=== PATIENT | male | born 1995 | race African-American/Black ===

== ENCOUNTER 2016-08-23 21:16 | Observation (INO) | payer OTHER, SELFPAY ==
[~2016-08-23] VITALS: Ht 165.1 cm; Wt 77.9 kg
[2016-08-23] MEDS ORDERED: GI COCKTAIL 50ML BTL(HYOSCYAMINE/MAALOX/LIDOCAINE VISCOUS)(1:3:1) As Ordered ONE (23:08)
[2016-08-23 23:21] LABS: BASO % 0.4 % (0.0-1.0); EOS # 0.2 K/mm3 (0.0-0.50); EOS % 2.3 % (0.0-3.0); LARGE UNSTAINED CELL # 0.2 K/mm3 (0.0-0.4); LARGE UNSTAINED CELL % 1.4 % (0.0-4.0); LYMPH # 3.3 K/mm3 (1.5-6.5); LYMPH % 28.1 % (24.0-44.0); MEAN CORPUSCULAR HEMOGLOBIN 30.7 pg (27.0-33.0); MEAN CORPUSCULAR VOLUME 87.8 fl (80.0-96.0); MONO # 0.7 K/mm3 (0.0-0.8); MONO % 6.7 % (0.0-5.0); NEUTROPHILS # 6.7 K/mm3 (1.8-7.7); NEUTROPHILS % 61.1 % (36.0-66.0); PLATELET COUNT, AUTOMATED 189 k/mm3 (150-450); RED CELL DISTRIBUTION WIDTH 12.1 % (11.5-14.5)
[2016-08-23 23:35] LABS: ALBUMIN 4.3 GM/DL (3.2-5.2); ALBUMIN/GLOBULIN RATIO 1.26 (1.00-1.93); ALKALINE PHOSPHATASE 112 U/L (45-117); ALT/SGPT 75 U/L (12-78); ANION GAP 8 MEQ/L (8-16); AST/SGOT 48 U/L (15-37); BILIRUBIN,DIRECT 0.2 MG/DL (0.0-0.2); BILIRUBIN,TOTAL 0.6 MG/DL (0.2-1.0); BLOOD UREA NITROGEN 17 MG/DL (7-18); CARBON DIOXIDE LEVEL 27 MEQ/L (21-32); CHLORIDE LEVEL 107 MEQ/L (98-107); CREATININE FOR GFR 1.03 MG/DL (0.70-1.30); GLOMERULAR FILTRATION RATE > 60.0 (>60); GLUCOSE, FASTING 92 MG/DL (70-105); POTASSIUM SERUM 3.7 MEQ/L (3.5-5.1); SODIUM LEVEL 142 MEQ/L (136-145); TOTAL PROTEIN 7.7 GM/DL (6.4-8.2)
[2016-08-24] MEDS ORDERED: ONDANSETRON 4MG/2ML VIAL (J2405) IV PRN (00:45)
[2016-08-24] MEDS ORDERED: ACETAMINOPHEN TAB 650MG DOSE (2X325MG) PO PRN (00:45)
--- NOTE | 2016-08-24 00:55 | REP ---
clinical: Chest pain . Comparison: None . Technique: PA and lateral. Findings: The mediastinum and cardiac silhouette are normal. The lung sampson are clear and without acute consolidation, effusion, or pneumothorax. The skeletal structures are intact and normal. Impression: 1. No acute cardiopulmonary process. Signed by Alonzo Kline MD 08/24/2016 12:47 A
--- NOTE | 2016-08-24 01:32 | HPEPDOC ---
General Date of Admission 08/24/16 Chief Complaint The patient is a 21-year-old male admitted with a reason for visit of Chest Pain. Source: Patient Exam Limitations: No limitations History of Present Illness 21-year-old male who is part of the at [place] presents to the ER with a chief complaint of muscle aches and pains in his right shoulder and chest. The patient states that [place], and since then he has had increasing pain in his right shoulder and chest. He does note that he has had these pains before over the past 1 year, however at this time he states that they have become more bothersome. He describes the pain as a dull ache and soreness. He denies any trauma to the area or any recent falls. The patient denies use of any prescription medication and or illicit drug use. In addition, the patient denies any symptoms of fevers , chills, shortness of breath, palpitations, abdominal pain, or any nausea/ vomiting/diarrhea. In the ER, the patient was found to have elevated total creatine kinase level of over 3000. An EKG revealed no acute ST changes. The patient will be admitted to the hospitalist service under Dr. Topete for further evaluation and management of his rhabdomyolysis. Home Medications No Active Prescriptions or Reported Meds Allergies Coded Allergies: No Known Allergies (Unverified , 08/24/16) Past Medical History Medical History None Surgical History Surgical opening of left nare. Family History Significant Family History: No pertinent family hx Social History * Smoker: non-smoker Alcohol: denies Drugs: denies Recent Travel/Sick Contacts: Denies: Recent sick contacts, Recent travel Review of Symptoms Other systems 10 point review of systems negative unless otherwise specified in HPI. Physical Examination General Exam: Positive: Alert, Cooperative, No Acute Distress ENT Exam: Positive: Atraumatic, Mucous membr. moist/pink Neck Exam: Negative: JVD Chest Exam: Positive: Clear to auscultation, Normal air movement, Other (chest pain reproducible on palpation) Heart Exam: Positive: Normal S1, Normal S2, Rate Normal Telemetry: Positive: No significant arrhythmia, Sinus Abdomen Exam: Positive: Soft, Negative: Tenderness Extremity Exam: Negative: Swelling, Tenderness Neuro Exam: Positive: Strength at 5/5 X4 ext Vital Signs As noted in EMR. Laboratory Data Labs 24H Laboratory Tests 2 08/23/16 22:26: Aspartate Amino Transf (AST/SGOT) 48H, Alanine Aminotransferase (ALT/SGPT) 75, Alkaline Phosphatase 112, Total Bilirubin 0.6, Direct Bilirubin 0.2, Albumin 4.3 , Albumin/Globulin Ratio 1.26, Anion Gap 8, White Blood Count 11.0H, Red Blood Count 5.07, Hemoglobin 15.6, Hematocrit 44.5, Mean Corpuscular Volume 87.8, Mean Corpuscular Hemoglobin 30.7, Mean Corpuscular Hemoglobin Concent 35.0, Red Cell Distribution Width 12.1, Platelet Count 189, Neutrophils (%) (Auto) 61.1, Lymphocytes (%) (Auto) 28.1, Monocytes (%) (Auto) 6.7H, Eosinophils (%) (Auto) 2.3, Basophils (%) (Auto) 0.4, Neutrophils # (Auto) 6.7, Lymphocytes # (Auto) 3.3, Monocytes # (Auto) 0.7, Eosinophils # (Auto) 0.2, Basophils # (Auto) 0.0, Calcium Level 9.0, Creatine Kinase MB 2.5, Creatine Kinase MB Relative Index 0.07, D-Dimer, Quantitative < 270.0, Glomerular Filtration Rate > 60.0, Large Unclassified Cells # 0.2, Large Unclassified Cells % 1.4, Total Creatine Kinase 3329H, Total Protein 7.7, Troponin I < 0.02 CBC/BMP Laboratory Tests 08/23/16 22:26 Red Blood Count 5.07, Mean Corpuscular Volume 87.8, Mean Corpuscular Hemoglobin 30.7, Mean Corpuscular Hemoglobin Concent 35.0, Red Cell Distribution Width 12.1 , Neutrophils (%) (Auto) 61.1, Lymphocytes (%) (Auto) 28.1, Monocytes (%) (Auto ) 6.7 H, Eosinophils (%) (Auto) 2.3, Basophils (%) (Auto) 0.4, Neutrophils # ( Auto) 6.7, Lymphocytes # (Auto) 3.3, Monocytes # (Auto) 0.7, Eosinophils # (Auto ) 0.2, Basophils # (Auto) 0.0 Plan / VTE VTE Prophylaxis Ordered?: Yes Plan Plan Rhabdomyolysis secondary to physical exertion Admitted for [facility] Total creatine kinase level noted to be 3329 Will treat with IV fluid hydration Serum creatinine, and electrolytes within normal limits-Will continue to trend Urine toxicology screening, urine myoglobin study ordered We will trend the patient's creatine kinase levels every 8 hours DVT prophylaxis-Lovenox The patient will be admitted under Dr. Topete's service, and he will begin to follow the patient on 08/24/2016 at 7 AM. RAVI JONES MD Aug 24, 2016 01:32
--- NOTE | 2016-08-24 02:39 | EDDOCDS ---
Nurse's Notes [facility] Name: Jaylene Patterson Age: 21 yrs Sex: Male : 1995 Arrival Date: 08/23/2016 Time: 21:16 Bed 9 Private MD: Other - Complete Info On Cds Diagnosis: Rhabdomyolysis Presentation: 08/23 21:33 Presenting complaint: Patient states: anterior chest wall pain, difficulty breathing on rs3 and off worse with PT or exercise for 6 months. relief with rest. reports of R shoulder pain for 6 months. Aspirin was not taken prior to arrival. Adult Sepsis Screening: The patient does not have new or worsening altered mentation. Patient's respiratory rate is less than 22. Systolic blood pressure is greater than 100. Patient has a qSOFA score of 0- Negative Sepsis Screen. Suicide/Homicide risk assessment- the patient denies having any suicidal and/or homicidal ideations and does not present with any other emotional, behavioral or mental health complaints. 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 Transition of care: patient was not received from another setting of care. 21:33 Acuity: JAYESH Level 3 rs3 21:33 Method Of Arrival: Walkin/Carried/Asstd rs3 Triage Assessment: 21:36 General: Appears in no apparent distress. Pain: Denies pain. HIV screening NA for this rs3 visit Offered previously. Cardiovascular: Chest pain is described as vague, radiates Does not radiate. episodes are intermittent began 6 months. Historical: - Allergies: no known allergies; - Home Meds: 1. none - PMHx: none; - PSHx: nose surgery; - Social history: Smoking status: Patient uses tobacco products, light tobacco smoker. No barriers to communication noted, The patient speaks fluent Hungarian. - Family history: Not pertinent. - : The pt / caregiver states he / she is not on anticoagulants. Home medication list is obtained from the patient. - Exposure Risk Screening:: None identified. Screenin:30 Screening information is obtained from the patient. Fall risk: No risks identified. ko2 Assistance ADL's: requires no assistance with activities of daily living. Abuse/DV Screen: The patient / caregiver reports he/she is: not in a situation that causes fear, pain or injury. Nutritional screening: No deficits noted. Advance Directives: Currently, there is no health care proxy. There is no active DNR order. There is no living will. There is no Power of Visual Presentation Manager. home support is adequate. Assessment: 22:29 General: Appears in no apparent distress, comfortable, Behavior is appropriate for age, ko2 cooperative. Pain: Location: anterior aspect of left upper chest Pain currently is 8 out of 10 on a pain scale. Neurological: Level of Consciousness is awake, alert. Respiratory: Airway is patent. Derm: Skin is normal. 22:48 General: Appears in no apparent distress, comfortable, Behavior is appropriate for age, ko2 cooperative. Pain: Location: anterior aspect of left upper chest Pain currently is 8 out of 10 on a pain scale. Neurological: Level of Consciousness is awake, alert. Cardiovascular: Rhythm is regular. Respiratory: Airway is patent. Derm: Skin is normal. 23:12 General: Pt laying comfortably in bed. Medicated per orders for reported 810 pain. ld5 Call lomeli placed within reach. 23:58 General: Appears in no apparent distress, comfortable, Behavior is appropriate for age, ko2 cooperative. Pain:. Neurological: Level of Consciousness is awake, alert. Cardiovascular: Rhythm is regular. Respiratory: Airway is patent. Derm: Skin is normal. 08/24 01:00 General: Appears in no apparent distress, comfortable. Neurological: Level of ko2 Consciousness is awake, alert. Cardiovascular: Rhythm is regular. Respiratory: No deficits noted. Derm: Skin is normal. Vital Signs: 08/23 21:19 BP 155 / 99; Pulse 68; Resp 18 S; Temp 96.8(O); Pulse Ox 99% on R/A; Weight 77.11 kg gr2 (R); Height 5 ft. 5 in. (165.10 cm) (R); Pain 09/21; 22:42 BP 127 / 86 (auto/); ko2 22:43 Pulse 80 MON; Pulse Ox 98% ; ko2 23:12 BP 118 / 74 (auto/); ko2 23:12 Pulse 86 MON; Pulse Ox 97% ; ko2 23:42 BP 107 / 64 (auto/); ko2 23:42 Pulse 64 MON; Pulse Ox 96% ; ko2 08/24 00:11 Pulse 54 MON; Pulse Ox 95% ; ko2 00:12 BP 125 / 75 (auto/); ko2 00:41 Pulse 60 MON; Pulse Ox 97% ; ko2 00:42 BP 111 / 62 (auto/); ko2 01:11 Pulse 60 MON; Pulse Ox 97% ; ko2 01:12 BP 114 / 58 (auto/); ko2 01:58 BP 115 / 51; Pulse 74; Resp 16; Temp 97; Pulse Ox 96% ; Pain 2/10; ko2 08/23 21:19 Body Mass Index 28.29 (77.11 kg, 165.10 cm) gr2 Vitals: 08/23 21:19 Log In Time: August 23, 2016 at 21:19. gr2 ED Course: 21:18 Patient visited by Savannah Garnado. gr2 21:18 Other - Complete Info On Cds is Private Physician. gr2 21:18 Patient moved to Waiting gr2 21:20 Patient visited by Savannah Granado. gr2 21:20 Patient moved to Pre RCE gr2 21:36 Triage Initiated rs3 22:14 Arlette Mantilla,KENN is Primary Nurse. jul 22:14 Patient moved to Jul 22:15 Osvaldo Mosley DO is PHCP. gk1 22:16 Ramon Meehan DO is Attending Physician. gk1 22:18 Patient visited by Arlette Mantilla RN. ko2 22:29 Patient visited by Arlette Mantilla RN. ko2 22:30 Patient visited by Arlette Mantilla RN. ko2 22:30 Inserted saline lock: 20 gauge in right antecubital area and blood collected. The ko2 patient tolerated the procedure well. 23:05 Patient visited by Ramon Meehan DO. mm11 23:07 EKG done. (by ED staff). Reviewed by Osvaldo Mosley DO. cln 23:08 Patient visited by Leticia Carter PCA. cln 23:12 Patient visited by Alexa Abmrocio,KENN. ld5 23:59 Patient visited by Arlette Mantilla RN. ko2 23:59 The patient / caregiver is instructed regarding the plan of care and ED course. Cardiac ko2 monitor on. Pulse ox on. NIBP on. 08/24 00:25 Patient visited by Arlette Mantilla,KENN. ko2 00:27 Osvaldo Villafuerte is Hospitalizing Provider. gk1 00:51 Patient visited by Osvaldo Mosley DO. gk1 01:12 [facility] Payment Agreement was scanned into [employer] and attached to record. hs2 01:14 Patient name changed from Luanner\S\D\S\Patterson\S\ to Luanner\S\Darren\S\Patterson. EDMS 01:18 Chest, 2 View (pa\E\lat) Returned. EDMS 01:57 No procedures done that require assistance. ko2 Administered Medications: 08/23 23:12 Drug: GI Cocktail - (Alum-Mag Hydroxide-Simeth Suspension 225 mg-200 mg-25 mg/5 mL 30 ld5 ml, Lidocaine Liquid 2 % 10 ml, Hyoscyamine Liquid 10 ml) Route: PO; 08/24 00:25 Drug: LR 1000 ml [lactated ringers intravenous solution] Route: IV; Rate: 1 bolus; ko2 Site: right antecubital; Order Results: Lab Order: CBC with Diff; SPEC'M 08/23/16 22:26 Test: WHITE BLOOD COUNT; Value: 11.0; Range: 4.0-10.0; Abnormal: Above high normal; Units: K/mm3; Status: F Test: RED BLOOD COUNT; Value: 5.07; Range: 4.30-6.10; Units: M/mm3; Status: F Test: HEMOGLOBIN; Value: 15.6; Range: 14.0-18.0; Units: g/dl; Status: F Test: HEMATOCRIT; Value: 44.5; Range: 42.0-52.0; Units: %; Status: F Test: MEAN CORPUSCULAR VOLUME; Value: 87.8; Range: 80.0-96.0; Units: fl; Status: F Test: MEAN CORPUSCULAR HEMOGLOBIN; Value: 30.7; Range: 27.0-33.0; Units: pg; Status: F Test: MEAN CORPUSCULAR HGB CONC; Value: 35.0; Range: 32.0-36.5; Units: g/dl; Status: F Test: RED CELL DISTRIBUTION WIDTH; Value: 12.1; Range: 11.5-14.5; Units: %; Status: F Test: PLATELET COUNT, AUTOMATED; Value: 189; Range: 150-450; Units: k/mm3; Status: F Test: NEUTROPHILS %; Value: 61.1; Range: 36.0-66.0; Units: %; Status: F Test: LYMPH %; Value: 28.1; Range: 24.0-44.0; Units: %; Status: F Test: MONO %; Value: 6.7; Range: 0.0-5.0; Abnormal: Above high normal; Units: %; Status: F Test: EOS %; Value: 2.3; Range: 0.0-3.0; Units: %; Status: F Test: BASO %; Value: 0.4; Range: 0.0-1.0; Units: %; Status: F Test: LARGE UNSTAINED CELL %; Value: 1.4; Range: 0.0-4.0; Units: %; Status: F Test: NEUTROPHILS #; Value: 6.7; Range: 1.8-7.7; Units: K/mm3; Status: F Test: LYMPH #; Value: 3.3; Range: 1.5-6.5; Units: K/mm3; Status: F Test: MONO #; Value: 0.7; Range: 0.0-0.8; Units: K/mm3; Status: F Test: EOS #; Value: 0.2; Range: 0.0-0.50; Units: K/mm3; Status: F Test: BASO #; Value: 0.0; Range: 0.0-0.2; Units: K/mm3; Status: F Test: LARGE UNSTAINED CELL #; Value: 0.2; Range: 0.0-0.4; Units: K/mm3; Status: F Lab Order: [facility]; SPEC'M 08/23/16 22:26 Test: GLUCOSE, FASTING; Value: 92; Range: 70-105; Units: MG/DL; Status: F Test: BLOOD UREA NITROGEN; Value: 17; Range: 7-18; Units: MG/DL; Status: F Test: CREATININE FOR GFR; Value: 1.03; Range: 0.70-1.30; Units: MG/DL; Status: F Test: GLOMERULAR FILTRATION RATE; Value: > 60.0; Range: >60; Status: F Test: SODIUM LEVEL; Value: 142; Range: 136-145; Units: MEQ/L; Status: F Test: POTASSIUM SERUM; Value: 3.7; Range: 3.5-5.1; Units: MEQ/L; Status: F Test: CHLORIDE LEVEL; Value: 107; Range: 98-107; Units: MEQ/L; Status: F Test: CARBON DIOXIDE LEVEL; Value: 27; Range: 21-32; Units: MEQ/L; Status: F Test: ANION GAP; Value: 8; Range: 8-16; Units: MEQ/L; Status: F Test: CALCIUM LEVEL; Value: 9.0; Range: 8.5-10.1; Units: MG/DL; Status: F Test Note: ; Units are mL/min/1.73 m2 Chronic Kidney Disease Staging per NKF: Stage I & II GFR >=60 Normal to Mildly Decreased Stage III GFR 30-59 Moderately Decreased Stage IV GFR 15-29 Severely Decreased Stage V GFR <15 Very Little GFR Left ESRD GFR <15 on POSTBED STITCHER Lab Order: Liver Profile; SPEC'M 08/23/16 22:26 Test: AST/SGOT; Value: 48; Range: 15-37; Abnormal: Above high normal; Units: U/L; Status: F Test: ALT/SGPT; Value: 75; Range: 12-78; Units: U/L; Status: F Test: ALKALINE PHOSPHATASE; Value: 112; Range: 45-117; Units: U/L; Status: F Test: BILIRUBIN,TOTAL; Value: 0.6; Range: 0.2-1.0; Units: MG/DL; Status: F Test: BILIRUBIN,DIRECT; Value: 0.2; Range: 0.0-0.2; Units: MG/DL; Status: F Test: TOTAL PROTEIN; Value: 7.7; Range: 6.4-8.2; Units: GM/DL; Status: F Test: ALBUMIN; Value: 4.3; Range: 3.2-5.2; Units: GM/DL; Status: F Test: ALBUMIN/GLOBULIN RATIO; Value: 1.26; Range: 1.00-1.93; Status: F Lab Order: Cardiac Marker Panel; SPEC'M 08/23/16 22:26 Test: CPK CREATINE PHOSPHOKINASE; Value: 3329; Range: 39-308; Abnormal: Above high normal; Units: U/L; Status: F Test: CK-MB VALUE MASS; Value: 2.5; Range: 0.0-3.6; Units: NG/ML; Status: F Test: MB/CK RELATIVE INDEX; Value: 0.07; Range: < OR =4; Status: F Test: TROPONIN I; Value: < 0.02; Range: < 0.10; Units: NG/ML; Status: F Test Note: ; DIAGNOSIS CRITERIA MMB ng/ml Relative Index (RI) NON-AMI < or = 5 N/A SAMUEL ZONE > 5 < or = 4 AMI > 5 > 4 Lab Order: D-Dimer Quant; SPEC'M 08/23/16 22:26 Test: D-DIMER QUANT; Value: < 270.0; Range: <500; Units: ng/ml; Status: F Radiology Order: Chest, 2 View (pa\E\lat) Test: Chest, 2 View (pa\E\lat) REASON FOR EXAMINATION: Chest Pain; clinical: Chest pain .; ; Comparison: None .; ; Technique: PA and lateral.; ; Findings:; The mediastinum and cardiac silhouette are normal. The lung sampson are clear and; without acute consolidation, effusion, or pneumothorax. The skeletal structures; are intact and normal.; ; Impression:; 1. No acute cardiopulmonary process.; ; ; Signed by; Alonzo Kline MD 08/24/2016 12:47 A; Outcome: 00:27 Decision to Hospitalize by Provider. gk1 01:57 Discharge Assessment: Patient awake, alert and oriented x 3. No cognitive and/or ko2 functional deficits noted. Patient verbalized understanding of disposition instructions. patient administered narcotics - no. The following High Risk Discharge criteria are identified: None. Admitted to Floor accompanied by tech, via wheelchair, with chart. Condition: stable. No special radiology studies were completed. Property :Personal belongings accompany Pt. 02:39 Patient left the ED. ko2 Signatures: Dispatcher [employer] EDMS Candy Montemayor RN RN jan Maynard, Matthew, DO DO mm11 Shirley Dorsey RN RN rs3 Alexa Ambrocio RN RN ld5 Savannah Granado gr2 Arlette Mantilla RN RN ko2 Elza Gavin, Reg Reg hs2 Leticia Carter, AIR TESTER AIR TESTER cln Mosley, Osvaldo, DO DO gk1 MTDD
--- NOTE | 2016-08-24 02:39 | EDDOCDS ---
Physician Documentation [facility] Name: Jaylene Patterson Age: 21 yrs Sex: Male : 1995 Arrival Date: 08/23/2016 Time: 21:16 Bed 9 Private MD: Other - Complete Info On Cds Disposition: 08/24 00:46 I have independently interviewed and examined the patient, and I agree with the mm11 investigation, diagnosis and treatment plan as documented by the Resident. Disposition: 08/24/16 00:27 Hospitalization ordered by Osvaldo Villafuerte for Inpatient Admission. Preliminary diagnosis is Rhabdomyolysis. - Bed requested for 4 [place]. - Status is Inpatient Admission. ko2 - Condition is Stable. - Problem is an acute exacerbation. - Symptoms have improved. Historical: - Allergies: no known allergies; - Home Meds: 1. none - PMHx: none; - PSHx: nose surgery; - Social history: Smoking status: Patient uses tobacco products, light tobacco smoker. No barriers to communication noted, The patient speaks fluent Romansh. - Family history: Not pertinent. - : The pt / caregiver states he / she is not on anticoagulants. Home medication list is obtained from the patient. - Exposure Risk Screening:: None identified. Vital Signs: 08/23 21:19 BP 155 / 99; Pulse 68; Resp 18 S; Temp 96.8(O); Pulse Ox 99% on R/A; Weight 77.11 kg / gr2 170 lbs (R); Height 5 ft. 5 in. (165.10 cm) (R); Pain 3/10; 22:42 BP 127 / 86 (auto/); ko2 22:43 Pulse 80 MON; Pulse Ox 98% ; ko2 23:12 BP 118 / 74 (auto/); ko2 23:12 Pulse 86 MON; Pulse Ox 97% ; ko2 23:42 BP 107 / 64 (auto/); ko2 23:42 Pulse 64 MON; Pulse Ox 96% ; ko2 08/24 00:11 Pulse 54 MON; Pulse Ox 95% ; ko2 00:12 BP 125 / 75 (auto/); ko2 00:41 Pulse 60 MON; Pulse Ox 97% ; ko2 00:42 BP 111 / 62 (auto/); ko2 01:11 Pulse 60 MON; Pulse Ox 97% ; ko2 01:12 BP 114 / 58 (auto/); ko2 01:58 BP 115 / 51; Pulse 74; Resp 16; Temp 97; Pulse Ox 96% ; Pain 2/10; ko2 08/23 21:19 Body Mass Index 28.29 (77.11 kg, 165.10 cm) gr2 MDM: 08/23 22:39 ECG WITH READING ER PHYS+CARDIAG ordered. EDMS 23:04 [employer] Technician/Pulse Ox/q 30 min VS ordered. mm11 23:04 GI Cocktail - (Alum-Mag Hydroxide-Simeth 30 ml, Lidocaine 10 ml, Hyoscyamine 10 ml) PO mm11 once; Pre-mixed 50mL unit dose ordered. 23:05 CBC with Diff Ordered. EDMS 23:05 BMP Ordered. EDMS 23:05 Liver Profile Ordered. EDMS 23:05 Cardiac Marker Panel Ordered. EDMS 23:05 D-Dimer Quant Ordered. EDMS 23:07 Chest, 2 View (pa\E\lat) Ordered. EDMS 08/24 00:02 CBC with Diff Reviewed. gk1 00:02 Liver Profile Reviewed. gk1 00:02 Cardiac Marker Panel Reviewed. gk1 00:02 BMP Reviewed. gk1 00:02 D-Dimer Quant Reviewed. gk1 00:09 Financial registration complete. hs2 00:19 BED REQUEST+ADM ordered. EDMS 00:20 LR Solution 1000 ml IV at 1 bolus once ordered. mm11 01:12 [facility] Payment Agreement was scanned into [employer] and attached to record. hs2 01:18 REGULAR DIET ordered. EDMS 01:18 DRUG EVAL TOXICOLOGY ED ONLY Ordered. EDMS 01:18 URINALYSIS Ordered. EDMS 01:18 CARDIAC MARKER PANEL Ordered. EDMS 01:19 CARDIAC MARKER PANEL Ordered. EDMS 01:19 CARDIAC MARKER PANEL Ordered. EDMS 01:19 URINE MYOGLOBIN SCREEN Ordered. EDMS 01:20 Admission / Observation Status ordered. EDMS 01:22 COMPLETE BLOOD COUNT Ordered. EDMS 01:22 BASIC METABOLIC PROFILE Ordered. EDMS 01:22 MAGNESIUM LEVEL Ordered. EDMS 01:22 THYROID STIMULATING HORMONE Ordered. EDMS 01:22 FREE T4 Ordered. EDMS Administered Medications: 08/23 23:12 Drug: GI Cocktail - (Alum-Mag Hydroxide-Simeth Suspension 225 mg-200 mg-25 mg/5 mL 30 ld5 ml, Lidocaine Liquid 2 % 10 ml, Hyoscyamine Liquid 10 ml) Route: PO; 08/24 00:25 Drug: LR 1000 ml [lactated ringers intravenous solution] Route: IV; Rate: 1 bolus; ko2 Site: right antecubital; Signatures: Dispatcher [employer] Ramon Weems, DO DO mm11 Shirley Dorsey RN RN rs3 Arlette Mantilla RN RN ko2 Elza Gavin, Reg Reg hs2 Jonathan Carmichael RN RN sa Kaur, Gurpreet DO DO gk1 Alexa Ambrocio RN ld5 The chart was reviewed and I authenticate all verbal orders and agree with the evaluation and treatment provided.Attachments: 01:12 [facility] Payment Agreement hs2 MTDD
[2016-08-24 02:40] VITALS: BP 120/58
[2016-08-24] MEDS: NS 1,000 ML IV SCH ×4 (03:03→22:41)
[2016-08-24 06:00] VITALS: BP 131/64
[2016-08-24 07:04] LABS: MEAN CORPUSCULAR HEMOGLOBIN 32.3 pg (27.0-33.0); MEAN CORPUSCULAR HGB CONC 36.3 g/dl (32.0-36.5); RED CELL DISTRIBUTION WIDTH 11.7 % (11.5-14.5); WHITE BLOOD COUNT 10.2 K/mm3 (4.0-10.0)
[2016-08-24 07:34] LABS: ANION GAP 8 MEQ/L (8-16); BLOOD UREA NITROGEN 14 MG/DL (7-18); CALCIUM LEVEL 8.7 MG/DL (8.5-10.1); CARBON DIOXIDE LEVEL 27 MEQ/L (21-32); CHLORIDE LEVEL 107 MEQ/L (98-107); CREATININE FOR GFR 1.01 MG/DL (0.70-1.30); FREE T4 1.03 NG/DL (0.76-1.46); GLOMERULAR FILTRATION RATE > 60.0 (>60); GLUCOSE, FASTING 82 MG/DL (70-105); MAGNESIUM LEVEL 2.1 MG/DL (1.8-2.4); SODIUM LEVEL 142 MEQ/L (136-145)
[2016-08-24] MEDS ORDERED: ENOXAPARIN 40 MG/0.4 ML SYRINGE (J1650) SC SCH (09:00)
[2016-08-24 14:00] VITALS: BP 124/67
--- NOTE | 2016-08-24 21:19 | ECGEPIP ---
Stationary ECG Study [facility] - ED Test Date: 2016-08-23 Pat Name: BRADLEY SALDANA Department: Room: [place] [address] Gender: M [employer] Section: devin : 1995 Requested By: JOE Wagoner Order Number: [id number] Reading MD: Eileen Arauz Measurements Intervals [place] Rate: 72 P: 41 [place]: 147 QRS: 66 QRSD: 83 T: 27 QT: 381 QTc: 417 Interpretive Statements SINUS RHYTHM EARLY REPOLARIZATION NO PRIOR FOR COMPARISON Electronically Signed On 08-24-2016 21:19:01 EST by Eileen Arauz
[2016-08-24 22:00] VITALS: BP 142/82
[2016-08-25] MEDS: NS 1,000 ML IV SCH (05:04)
[2016-08-25 06:00] VITALS: BP 142/90
[2016-08-25 06:30] LABS: MEAN CORPUSCULAR HEMOGLOBIN 30.1 pg (27.0-33.0); MEAN CORPUSCULAR HGB CONC 33.9 g/dl (32.0-36.5); MEAN CORPUSCULAR VOLUME 88.8 fl (80.0-96.0); RED CELL DISTRIBUTION WIDTH 11.8 % (11.5-14.5); WHITE BLOOD COUNT 10.4 K/mm3 (4.0-10.0)
[2016-08-25 07:03] LABS: ANION GAP 9 MEQ/L (8-16); BLOOD UREA NITROGEN 11 MG/DL (7-18); CALCIUM LEVEL 8.6 MG/DL (8.5-10.1); CARBON DIOXIDE LEVEL 23 MEQ/L (21-32); CHLORIDE LEVEL 111 MEQ/L (98-107); CREATININE FOR GFR 0.94 MG/DL (0.70-1.30); GLOMERULAR FILTRATION RATE > 60.0 (>60); GLUCOSE, FASTING 91 MG/DL (70-105); SODIUM LEVEL 143 MEQ/L (136-145)
--- NOTE | 2016-08-26 03:40 | EDDOCDS ---
Physician Documentation [facility] Name: Jaylene Patterson Age: 21 yrs Sex: Male : 1995 Arrival Date: 08/23/2016 Time: 21:16 Bed 9 Private MD: Other - Complete Info On Cds Disposition: 08/24 00:46 I have independently interviewed and examined the patient, and I agree with the mm11 investigation, diagnosis and treatment plan as documented by the Resident. Disposition: 08/24/16 00:27 Hospitalization ordered by Osvaldo Villafuerte for Inpatient Admission. Preliminary diagnosis is Rhabdomyolysis. - Bed requested for 4 [place]. - Status is Inpatient Admission. ko2 - Condition is Stable. - Problem is an acute exacerbation. - Symptoms have improved. Historical: - Allergies: no known allergies; - Home Meds: 1. none - PMHx: none; - PSHx: nose surgery; - Social history: Smoking status: Patient uses tobacco products, light tobacco smoker. No barriers to communication noted, The patient speaks fluent Khmer. - Family history: Not pertinent. - : The pt / caregiver states he / she is not on anticoagulants. Home medication list is obtained from the patient. - Exposure Risk Screening:: None identified. Vital Signs: 08/23 21:19 BP 155 / 99; Pulse 68; Resp 18 S; Temp 96.8(O); Pulse Ox 99% on R/A; Weight 77.11 kg / gr2 170 lbs (R); Height 5 ft. 5 in. (165.10 cm) (R); Pain 3/10; 22:42 BP 127 / 86 (auto/); ko2 22:43 Pulse 80 MON; Pulse Ox 98% ; ko2 23:12 BP 118 / 74 (auto/); ko2 23:12 Pulse 86 MON; Pulse Ox 97% ; ko2 23:42 BP 107 / 64 (auto/); ko2 23:42 Pulse 64 MON; Pulse Ox 96% ; ko2 08/24 00:11 Pulse 54 MON; Pulse Ox 95% ; ko2 00:12 BP 125 / 75 (auto/); ko2 00:41 Pulse 60 MON; Pulse Ox 97% ; ko2 00:42 BP 111 / 62 (auto/); ko2 01:11 Pulse 60 MON; Pulse Ox 97% ; ko2 01:12 BP 114 / 58 (auto/); ko2 01:58 BP 115 / 51; Pulse 74; Resp 16; Temp 97; Pulse Ox 96% ; Pain 2/10; ko2 08/23 21:19 Body Mass Index 28.29 (77.11 kg, 165.10 cm) gr2 MDM: 08/23 22:39 ECG WITH READING ER PHYS+CARDIAG ordered. EDMS 23:04 Transcripter/Pulse Ox/q 30 min VS ordered. mm11 23:04 GI Cocktail - (Alum-Mag Hydroxide-Simeth 30 ml, Lidocaine 10 ml, Hyoscyamine 10 ml) PO mm11 once; Pre-mixed 50mL unit dose ordered. 23:05 CBC with Diff Ordered. EDMS 23:05 BMP Ordered. EDMS 23:05 Liver Profile Ordered. EDMS 23:05 Cardiac Marker Panel Ordered. EDMS 23:05 D-Dimer Quant Ordered. EDMS 23:07 Chest, 2 View (pa\E\lat) Ordered. EDMS 08/24 00:02 CBC with Diff Reviewed. gk1 00:02 Liver Profile Reviewed. gk1 00:02 Cardiac Marker Panel Reviewed. gk1 00:02 BMP Reviewed. gk1 00:02 D-Dimer Quant Reviewed. gk1 00:09 Financial registration complete. hs2 00:19 BED REQUEST+ADM ordered. EDMS 00:20 LR Solution 1000 ml IV at 1 bolus once ordered. mm11 01:12 [facility] Payment Agreement was scanned into [employer] and attached to record. hs2 01:18 REGULAR DIET ordered. EDMS 01:18 DRUG EVAL TOXICOLOGY ED ONLY Ordered. EDMS 01:18 URINALYSIS Ordered. EDMS 01:18 CARDIAC MARKER PANEL Ordered. EDMS 01:19 CARDIAC MARKER PANEL Ordered. EDMS 01:19 CARDIAC MARKER PANEL Ordered. EDMS 01:19 URINE MYOGLOBIN SCREEN Ordered. EDMS 01:20 Admission / Observation Status ordered. EDMS 01:22 COMPLETE BLOOD COUNT Ordered. EDMS 01:22 BASIC METABOLIC PROFILE Ordered. EDMS 01:22 MAGNESIUM LEVEL Ordered. EDMS 01:22 THYROID STIMULATING HORMONE Ordered. EDMS 01:22 FREE T4 Ordered. EDMS 11:22 T-Sheet-- Draft Copy was scanned into [employer] and attached to record. gb 11:22 ECG/EKG was scanned into [employer] and attached to record. gb Administered Medications: 08/23 23:12 Drug: GI Cocktail - (Alum-Mag Hydroxide-Simeth Suspension 225 mg-200 mg-25 mg/5 mL 30 ld5 ml, Lidocaine Liquid 2 % 10 ml, Hyoscyamine Liquid 10 ml) Route: PO; 08/24 00:25 Drug: LR 1000 ml [lactated ringers intravenous solution] Route: IV; Rate: 1 bolus; ko2 Site: right antecubital; Signatures: Dispatcher [employer] EDMS Kary Zelaya, Reg Reg gb Ramon Meehan, DO DO mm11 Shirley DorseyRN RN rs3 Arlette Mantilla RN RN ko2 Elza Gavin, Reg Reg hs2 Jonathan Carmichael RN RN sa Kaur, Gurpreet, DO DO gk1 Alexa Ambrocio RN ld5 The chart was reviewed and I authenticate all verbal orders and agree with the evaluation and treatment provided.Attachments: 01:12 [facility] Payment Agreement hs2 11:22 T-Sheet-- Draft Copy gb 11:22 ECG/EKG gb Chart Complete MTDD
--- NOTE | 2016-08-26 03:40 | EDDOCDS ---
Nurse's Notes [facility] Name: Jaylene Patterson Age: 21 yrs Sex: Male : 1995 Arrival Date: 08/23/2016 Time: 21:16 Bed 9 Private MD: Other - Complete Info On Cds Diagnosis: Rhabdomyolysis Presentation: 08/23 21:33 Presenting complaint: Patient states: anterior chest wall pain, difficulty breathing on rs3 and off worse with PT or exercise for 6 months. relief with rest. reports of R shoulder pain for 6 months. Aspirin was not taken prior to arrival. Adult Sepsis Screening: The patient does not have new or worsening altered mentation. Patient's respiratory rate is less than 22. Systolic blood pressure is greater than 100. Patient has a qSOFA score of 0- Negative Sepsis Screen. Suicide/Homicide risk assessment- the patient denies having any suicidal and/or homicidal ideations and does not present with any other emotional, behavioral or mental health complaints. Status: The patient is an active duty financial service rep. Transition of care: patient was not received from another setting of care. 21:33 Acuity: JAYESH Level 3 rs3 21:33 Method Of Arrival: Walkin/Carried/Asstd rs3 Triage Assessment: 21:36 General: Appears in no apparent distress. Pain: Denies pain. HIV screening NA for this rs3 visit Offered previously. Cardiovascular: Chest pain is described as vague, radiates Does not radiate. episodes are intermittent began 6 months. Historical: - Allergies: no known allergies; - Home Meds: 1. none - PMHx: none; - PSHx: nose surgery; - Social history: Smoking status: Patient uses tobacco products, light tobacco smoker. No barriers to communication noted, The patient speaks fluent Luxembourgish. - Family history: Not pertinent. - : The pt / caregiver states he / she is not on anticoagulants. Home medication list is obtained from the patient. - Exposure Risk Screening:: None identified. Screenin:30 Screening information is obtained from the patient. Fall risk: No risks identified. ko2 Assistance ADL's: requires no assistance with activities of daily living. Abuse/DV Screen: The patient / caregiver reports he/she is: not in a situation that causes fear, pain or injury. Nutritional screening: No deficits noted. Advance Directives: Currently, there is no health care proxy. There is no active DNR order. There is no living will. There is no Power of Medical Data Entry Clerk. home support is adequate. Assessment: 22:29 General: Appears in no apparent distress, comfortable, Behavior is appropriate for age, ko2 cooperative. Pain: Location: anterior aspect of left upper chest Pain currently is 8 out of 10 on a pain scale. Neurological: Level of Consciousness is awake, alert. Respiratory: Airway is patent. Derm: Skin is normal. 22:48 General: Appears in no apparent distress, comfortable, Behavior is appropriate for age, ko2 cooperative. Pain: Location: anterior aspect of left upper chest Pain currently is 8 out of 10 on a pain scale. Neurological: Level of Consciousness is awake, alert. Cardiovascular: Rhythm is regular. Respiratory: Airway is patent. Derm: Skin is normal. 23:12 General: Pt laying comfortably in bed. Medicated per orders for reported 810 pain. ld5 Call lomeli placed within reach. 23:58 General: Appears in no apparent distress, comfortable, Behavior is appropriate for age, ko2 cooperative. Pain:. Neurological: Level of Consciousness is awake, alert. Cardiovascular: Rhythm is regular. Respiratory: Airway is patent. Derm: Skin is normal. 08/24 01:00 General: Appears in no apparent distress, comfortable. Neurological: Level of ko2 Consciousness is awake, alert. Cardiovascular: Rhythm is regular. Respiratory: No deficits noted. Derm: Skin is normal. Vital Signs: 08/23 21:19 BP 155 / 99; Pulse 68; Resp 18 S; Temp 96.8(O); Pulse Ox 99% on R/A; Weight 77.11 kg gr2 (R); Height 5 ft. 5 in. (165.10 cm) (R); Pain 09/21; 22:42 BP 127 / 86 (auto/); ko2 22:43 Pulse 80 MON; Pulse Ox 98% ; ko2 23:12 BP 118 / 74 (auto/); ko2 23:12 Pulse 86 MON; Pulse Ox 97% ; ko2 23:42 BP 107 / 64 (auto/); ko2 23:42 Pulse 64 MON; Pulse Ox 96% ; ko2 08/24 00:11 Pulse 54 MON; Pulse Ox 95% ; ko2 00:12 BP 125 / 75 (auto/); ko2 00:41 Pulse 60 MON; Pulse Ox 97% ; ko2 00:42 BP 111 / 62 (auto/); ko2 01:11 Pulse 60 MON; Pulse Ox 97% ; ko2 01:12 BP 114 / 58 (auto/); ko2 01:58 BP 115 / 51; Pulse 74; Resp 16; Temp 97; Pulse Ox 96% ; Pain 2/10; ko2 08/23 21:19 Body Mass Index 28.29 (77.11 kg, 165.10 cm) gr2 Vitals: 08/23 21:19 Log In Time: August 23, 2016 at 21:19. gr2 ED Course: 21:18 Patient visited by Savannah Granado. gr2 21:18 Other - Complete Info On Cds is Private Physician. gr2 21:18 Patient moved to Waiting gr2 21:20 Patient visited by Savannah Granado. gr2 21:20 Patient moved to Pre RCE gr2 21:36 Triage Initiated rs3 22:14 Arlette Mantilla,KENN is Primary Nurse. jul 22:14 Patient moved to Jul 22:15 Osvaldo Mosley DO is PHCP. gk1 22:16 Ramon Meehan DO is Attending Physician. gk1 22:18 Patient visited by Arlette Mantilla RN. ko2 22:29 Patient visited by Arlette Mantilla RN. ko2 22:30 Patient visited by Arlette Mantilla RN. ko2 22:30 Inserted saline lock: 20 gauge in right antecubital area and blood collected. The ko2 patient tolerated the procedure well. 23:05 Patient visited by Ramon Meehan DO. mm11 23:07 EKG done. (by ED staff). Reviewed by Osvaldo Mosley DO. cln 23:08 Patient visited by Leticia Carter PCA. cln 23:12 Patient visited by Alexa Ambrocio,KENN. ld5 23:59 Patient visited by Arlette Mantilla RN. ko2 23:59 The patient / caregiver is instructed regarding the plan of care and ED course. Cardiac ko2 monitor on. Pulse ox on. NIBP on. 08/24 00:25 Patient visited by Arlette Mantilla,KENN. ko2 00:27 Osvaldo Villafuerte is Hospitalizing Provider. gk1 00:51 Patient visited by Osvaldo Mosley DO. gk1 01:12 [facility] Payment Agreement was scanned into [employer] and attached to record. hs2 01:14 Patient name changed from Kwamir\S\D\S\Patterson\S\ to Kwamir\S\Darren\S\Patterson. EDMS 01:18 Chest, 2 View (pa\E\lat) Returned. EDMS 01:57 No procedures done that require assistance. ko2 11:22 T-Sheet-- Draft Copy was scanned into [employer] and attached to record. gb 11:22 ECG/EKG was scanned into [employer] and attached to record. gb Administered Medications: 08/23 23:12 Drug: GI Cocktail - (Alum-Mag Hydroxide-Simeth Suspension 225 mg-200 mg-25 mg/5 mL 30 ld5 ml, Lidocaine Liquid 2 % 10 ml, Hyoscyamine Liquid 10 ml) Route: PO; 08/24 00:25 Drug: LR 1000 ml [lactated ringers intravenous solution] Route: IV; Rate: 1 bolus; ko2 Site: right antecubital; Order Results: Lab Order: CBC with Diff; SPEC'M 08/23/16 22:26 Test: WHITE BLOOD COUNT; Value: 11.0; Range: 4.0-10.0; Abnormal: Above high normal; Units: K/mm3; Status: F Test: RED BLOOD COUNT; Value: 5.07; Range: 4.30-6.10; Units: M/mm3; Status: F Test: HEMOGLOBIN; Value: 15.6; Range: 14.0-18.0; Units: g/dl; Status: F Test: HEMATOCRIT; Value: 44.5; Range: 42.0-52.0; Units: %; Status: F Test: MEAN CORPUSCULAR VOLUME; Value: 87.8; Range: 80.0-96.0; Units: fl; Status: F Test: MEAN CORPUSCULAR HEMOGLOBIN; Value: 30.7; Range: 27.0-33.0; Units: pg; Status: F Test: MEAN CORPUSCULAR HGB CONC; Value: 35.0; Range: 32.0-36.5; Units: g/dl; Status: F Test: RED CELL DISTRIBUTION WIDTH; Value: 12.1; Range: 11.5-14.5; Units: %; Status: F Test: PLATELET COUNT, AUTOMATED; Value: 189; Range: 150-450; Units: k/mm3; Status: F Test: NEUTROPHILS %; Value: 61.1; Range: 36.0-66.0; Units: %; Status: F Test: LYMPH %; Value: 28.1; Range: 24.0-44.0; Units: %; Status: F Test: MONO %; Value: 6.7; Range: 0.0-5.0; Abnormal: Above high normal; Units: %; Status: F Test: EOS %; Value: 2.3; Range: 0.0-3.0; Units: %; Status: F Test: BASO %; Value: 0.4; Range: 0.0-1.0; Units: %; Status: F Test: LARGE UNSTAINED CELL %; Value: 1.4; Range: 0.0-4.0; Units: %; Status: F Test: NEUTROPHILS #; Value: 6.7; Range: 1.8-7.7; Units: K/mm3; Status: F Test: LYMPH #; Value: 3.3; Range: 1.5-6.5; Units: K/mm3; Status: F Test: MONO #; Value: 0.7; Range: 0.0-0.8; Units: K/mm3; Status: F Test: EOS #; Value: 0.2; Range: 0.0-0.50; Units: K/mm3; Status: F Test: BASO #; Value: 0.0; Range: 0.0-0.2; Units: K/mm3; Status: F Test: LARGE UNSTAINED CELL #; Value: 0.2; Range: 0.0-0.4; Units: K/mm3; Status: F Lab Order: [facility]; SPEC'M 08/23/16 22:26 Test: GLUCOSE, FASTING; Value: 92; Range: 70-105; Units: MG/DL; Status: F Test: BLOOD UREA NITROGEN; Value: 17; Range: 7-18; Units: MG/DL; Status: F Test: CREATININE FOR GFR; Value: 1.03; Range: 0.70-1.30; Units: MG/DL; Status: F Test: GLOMERULAR FILTRATION RATE; Value: > 60.0; Range: >60; Status: F Test: SODIUM LEVEL; Value: 142; Range: 136-145; Units: MEQ/L; Status: F Test: POTASSIUM SERUM; Value: 3.7; Range: 3.5-5.1; Units: MEQ/L; Status: F Test: CHLORIDE LEVEL; Value: 107; Range: 98-107; Units: MEQ/L; Status: F Test: CARBON DIOXIDE LEVEL; Value: 27; Range: 21-32; Units: MEQ/L; Status: F Test: ANION GAP; Value: 8; Range: 8-16; Units: MEQ/L; Status: F Test: CALCIUM LEVEL; Value: 9.0; Range: 8.5-10.1; Units: MG/DL; Status: F Test Note: ; Units are mL/min/1.73 m2 Chronic Kidney Disease Staging per NKF: Stage I & II GFR >=60 Normal to Mildly Decreased Stage III GFR 30-59 Moderately Decreased Stage IV GFR 15-29 Severely Decreased Stage V GFR <15 Very Little GFR Left ESRD GFR <15 on NEW [employer] Lab Order: Liver Profile; SPEC'M 08/23/16 22:26 Test: AST/SGOT; Value: 48; Range: 15-37; Abnormal: Above high normal; Units: U/L; Status: F Test: ALT/SGPT; Value: 75; Range: 12-78; Units: U/L; Status: F Test: ALKALINE PHOSPHATASE; Value: 112; Range: 45-117; Units: U/L; Status: F Test: BILIRUBIN,TOTAL; Value: 0.6; Range: 0.2-1.0; Units: MG/DL; Status: F Test: BILIRUBIN,DIRECT; Value: 0.2; Range: 0.0-0.2; Units: MG/DL; Status: F Test: TOTAL PROTEIN; Value: 7.7; Range: 6.4-8.2; Units: GM/DL; Status: F Test: ALBUMIN; Value: 4.3; Range: 3.2-5.2; Units: GM/DL; Status: F Test: ALBUMIN/GLOBULIN RATIO; Value: 1.26; Range: 1.00-1.93; Status: F Lab Order: Cardiac Marker Panel; SPEC'M 08/23/16 22:26 Test: CPK CREATINE PHOSPHOKINASE; Value: 3329; Range: 39-308; Abnormal: Above high normal; Units: U/L; Status: F Test: CK-MB VALUE MASS; Value: 2.5; Range: 0.0-3.6; Units: NG/ML; Status: F Test: MB/CK RELATIVE INDEX; Value: 0.07; Range: < OR =4; Status: F Test: TROPONIN I; Value: < 0.02; Range: < 0.10; Units: NG/ML; Status: F Test Note: ; DIAGNOSIS CRITERIA MMB ng/ml Relative Index (RI) NON-AMI < or = 5 N/A SAMUEL ZONE > 5 < or = 4 AMI > 5 > 4 Lab Order: D-Dimer Quant; SPEC'M 08/23/16 22:26 Test: D-DIMER QUANT; Value: < 270.0; Range: <500; Units: ng/ml; Status: F Radiology Order: Chest, 2 View (pa\E\lat) Test: Chest, 2 View (pa\E\lat) REASON FOR EXAMINATION: Chest Pain; clinical: Chest pain .; ; Comparison: None .; ; Technique: PA and lateral.; ; Findings:; The mediastinum and cardiac silhouette are normal. The lung sampsno are clear and; without acute consolidation, effusion, or pneumothorax. The skeletal structures; are intact and normal.; ; Impression:; 1. No acute cardiopulmonary process.; ; ; Signed by; Alonzo Kline MD 08/24/2016 12:47 A; Outcome: 00:27 Decision to Hospitalize by Provider. gk1 01:57 Discharge Assessment: Patient awake, alert and oriented x 3. No cognitive and/or ko2 functional deficits noted. Patient verbalized understanding of disposition instructions. patient administered narcotics - no. The following High Risk Discharge criteria are identified: None. Admitted to Floor accompanied by tech, via wheelchair, with chart. Condition: stable. No special radiology studies were completed. Property :Personal belongings accompany Pt. 02:39 Patient left the ED. ko2 Signatures: Dispatcher [employer] EDCandy Smyth RN RN jan Barnhardt, Gloria, Ramon Betancourt DO DO mm11 Shirley Dorsey RN RN rs3 Alexa Ambrocio,RN RN ld5 Savannah Granado gr2 Arlette Mantilla,RN RN ko2 Elza Gavin, [facility] Reg hs2 Raul, Leticia, KAREN GLOBAL TECHNICAL WRITER cln Melany, Osvaldo, DO DO gk1 Chart Complete MTDD
--- NOTE | 2016-08-26 03:40 | EDDOCDS ---
Physician Documentation [facility] Name: Jaylene Patterson Age: 21 yrs Sex: Male : 1995 Arrival Date: 08/23/2016 Time: 21:16 Bed 9 Private MD: Other - Complete Info On Cds Disposition: 08/24 00:46 I have independently interviewed and examined the patient, and I agree with the mm11 investigation, diagnosis and treatment plan as documented by the Resident. Disposition: 08/24/16 00:27 Hospitalization ordered by Osvaldo Villafuerte for Inpatient Admission. Preliminary diagnosis is Rhabdomyolysis. - Bed requested for 4 [place]. - Status is Inpatient Admission. ko2 - Condition is Stable. - Problem is an acute exacerbation. - Symptoms have improved. Historical: - Allergies: no known allergies; - Home Meds: 1. none - PMHx: none; - PSHx: nose surgery; - Social history: Smoking status: Patient uses tobacco products, light tobacco smoker. No barriers to communication noted, The patient speaks fluent Lithuanian. - Family history: Not pertinent. - : The pt / caregiver states he / she is not on anticoagulants. Home medication list is obtained from the patient. - Exposure Risk Screening:: None identified. Vital Signs: 08/23 21:19 BP 155 / 99; Pulse 68; Resp 18 S; Temp 96.8(O); Pulse Ox 99% on R/A; Weight 77.11 kg / gr2 170 lbs (R); Height 5 ft. 5 in. (165.10 cm) (R); Pain 3/10; 22:42 BP 127 / 86 (auto/); ko2 22:43 Pulse 80 MON; Pulse Ox 98% ; ko2 23:12 BP 118 / 74 (auto/); ko2 23:12 Pulse 86 MON; Pulse Ox 97% ; ko2 23:42 BP 107 / 64 (auto/); ko2 23:42 Pulse 64 MON; Pulse Ox 96% ; ko2 08/24 00:11 Pulse 54 MON; Pulse Ox 95% ; ko2 00:12 BP 125 / 75 (auto/); ko2 00:41 Pulse 60 MON; Pulse Ox 97% ; ko2 00:42 BP 111 / 62 (auto/); ko2 01:11 Pulse 60 MON; Pulse Ox 97% ; ko2 01:12 BP 114 / 58 (auto/); ko2 01:58 BP 115 / 51; Pulse 74; Resp 16; Temp 97; Pulse Ox 96% ; Pain 2/10; ko2 08/23 21:19 Body Mass Index 28.29 (77.11 kg, 165.10 cm) gr2 MDM: 08/23 22:39 ECG WITH READING ER PHYS+CARDIAG ordered. EDMS 23:04 Analysis Or Research Safety Inspector/Pulse Ox/q 30 min VS ordered. mm11 23:04 GI Cocktail - (Alum-Mag Hydroxide-Simeth 30 ml, Lidocaine 10 ml, Hyoscyamine 10 ml) PO mm11 once; Pre-mixed 50mL unit dose ordered. 23:05 CBC with Diff Ordered. EDMS 23:05 BMP Ordered. EDMS 23:05 Liver Profile Ordered. EDMS 23:05 Cardiac Marker Panel Ordered. EDMS 23:05 D-Dimer Quant Ordered. EDMS 23:07 Chest, 2 View (pa\E\lat) Ordered. EDMS 08/24 00:02 CBC with Diff Reviewed. gk1 00:02 Liver Profile Reviewed. gk1 00:02 Cardiac Marker Panel Reviewed. gk1 00:02 BMP Reviewed. gk1 00:02 D-Dimer Quant Reviewed. gk1 00:09 Financial registration complete. hs2 00:19 BED REQUEST+ADM ordered. EDMS 00:20 LR Solution 1000 ml IV at 1 bolus once ordered. mm11 01:12 [facility] Payment Agreement was scanned into [employer] and attached to record. hs2 01:18 REGULAR DIET ordered. EDMS 01:18 DRUG EVAL TOXICOLOGY ED ONLY Ordered. EDMS 01:18 URINALYSIS Ordered. EDMS 01:18 CARDIAC MARKER PANEL Ordered. EDMS 01:19 CARDIAC MARKER PANEL Ordered. EDMS 01:19 CARDIAC MARKER PANEL Ordered. EDMS 01:19 URINE MYOGLOBIN SCREEN Ordered. EDMS 01:20 Admission / Observation Status ordered. EDMS 01:22 COMPLETE BLOOD COUNT Ordered. EDMS 01:22 BASIC METABOLIC PROFILE Ordered. EDMS 01:22 MAGNESIUM LEVEL Ordered. EDMS 01:22 THYROID STIMULATING HORMONE Ordered. EDMS 01:22 FREE T4 Ordered. EDMS 11:22 T-Sheet-- Draft Copy was scanned into [employer] and attached to record. gb 11:22 ECG/EKG was scanned into [employer] and attached to record. gb Administered Medications: 08/23 23:12 Drug: GI Cocktail - (Alum-Mag Hydroxide-Simeth Suspension 225 mg-200 mg-25 mg/5 mL 30 ld5 ml, Lidocaine Liquid 2 % 10 ml, Hyoscyamine Liquid 10 ml) Route: PO; 08/24 00:25 Drug: LR 1000 ml [lactated ringers intravenous solution] Route: IV; Rate: 1 bolus; ko2 Site: right antecubital; Signatures: Dispatcher [employer] EDMS Kary Zelaya, Reg Reg gb Ramon Meehan, DO DO mm11 Shirley DorseyRN RN rs3 Arlette Mantilla RN RN ko2 Elza Gavin, Reg Reg hs2 Jonathan Carmichael RN RN sa Kaur, Gurpreet, DO DO gk1 Alexa Ambrocio RN ld5 The chart was reviewed and I authenticate all verbal orders and agree with the evaluation and treatment provided.Attachments: 01:12 [facility] Payment Agreement hs2 11:22 T-Sheet-- Draft Copy gb 11:22 ECG/EKG gb Chart Complete MTDD
--- NOTE | 2016-08-26 13:00 | DSES ---
DATE OF ADMISSION: 08/24/2016 DATE OF DISCHARGE: 08/25/2016 DISCHARGE DIAGNOSIS: Rhabdomyolysis. HOSPITAL COURSE: The patient is a 21-year-old man who was admitted with musculoskeletal, chest and shoulder pain. [place] Since then, he had increasing pain in his right shoulder and chest. He never had these pains before. They are dull, achy, soreness. He has not taken any medications. No performance enhancers. No complaints of chest pain, shortness of breath, not having problem with diarrhea. The patient was found to have a creatinine kinase (CK) elevated at 2951, which did improve with intravenous (IV) hydration and his symptoms did completely resolve. SUBJECTIVE: Today, the patient tells me he feels completely back to normal. He has no further chest pain. No shoulder pain. No nausea, vomiting, fever, or chills. OBJECTIVE: Vital signs: Temperature 96.5, pulse 62, respiratory rate 16, blood pressure (BP) 142/90, oxygen saturation 99% on room air. General: He is a well built, muscular, -Irish male. He jumps out of bed and stands up, walks to the bathroom. Talking to him, he does not appear to be in any acute distress whatsoever. HEENT: Cranial nerves II-XII are grossly intact. Cardiovascular exam: S1, S2, regular. Respiratory exam is clear. Abdominal exam is benign. No tenderness to palpation over his chest or shoulders. Extremities: No clubbing, cyanosis, or edema. LABORATORY STUDIES: WBC 10.4, hemoglobin 15.4, hematocrit 45.5, platelet count 168. Chemistry panel: Sodium 143, potassium 4.0, chloride 111, bicarbonate 23, BUN 11, creatinine 0.9, CK 2374. He has a TSH within normal limits. ASSESSMENT AND PLAN: This is a 21-year-old man with resolving rhabdomyolysis. PROBLEM: Rhabdomyolysis. Patient did receive greater than 24 hours of IV fluid rehydration. His CKs are trending down. His symptoms have completely resolved at this point. At this time, I feel he is medically stable for discharge home. He is to stay well hydrated. Followup at the [facility]. I will have him have a recheck of his CKs and basic metabolic panel (BMP) to assess his renal function on 08/27/2016, with results to be sent to the [facility]. I do recommend that he is off duty until followup at the [facility]. He is to followup with his primary care physician within 7 days. Medications at discharge: None. Greater than 30 minutes was spent organizing disposition, discussing future goals of care.
== END 2016-08-25 10:36 | disposition home or self-care (01) ==
LOC: M ED 21:16 → M ED INP 21:17 → UNDOADMOB 08-24 00:40 → M ED INP 08-24 00:40 → M MSPAV 08-24 02:40 → UNDODISOB 08-25 10:36
PROVIDERS: ADMIT Internal Medicine; ATTEND Internal Medicine
DX: M62.82 Rhabdomyolysis (principal)
CPT/HCPCS: 36415; 71020; 80048; 80076; 82550; 82553; 83735; 84439; 84443; 85025; 85027; 85379; 93005; 93041; 96372; 99285; J1650

== ENCOUNTER 2017-04-09 12:58 | Emergency (ER) | payer OTHER ==
[~2017-04-09] VITALS: Ht 165.1 cm; Wt 75.0 kg
[2017-04-09 13:09] VITALS: BP 155/87
[2017-04-09] MEDS ORDERED: FLUT1LOT EX (13:13)
[2017-04-09] MEDS ORDERED: ULTR50TA8 PO (14:48)
[2017-04-09] MEDS ORDERED: PRED20TA PO (14:48)
== END 2017-04-09 14:59 | disposition home or self-care (01) ==
LOC: M ED 12:58
DX: M77.9 Enthesopathy, unspecified (principal); Z72.0 Tobacco use

== ENCOUNTER 2017-06-03 07:32 | Day surgery (SDC) | payer OTHER ==
[~2017-06-03] VITALS: Ht 165.1 cm; Wt 77.1 kg
[~2017-06-03 07:32] MED LIST: FLUT1LOT EX; PRED20TA PO; ULTR50TA8 PO
[2017-06-03] MEDS ORDERED: LR 1,000 ML IV ONE (08:00)
[2017-06-03] MEDS ORDERED: REMIFENTANIL 1MG 3ML VIAL As Ordered ONE (09:08)
[2017-06-03] MEDS ORDERED: METHYLENE BLUE 0.5% (5MG/ML) 10 ML AMP (PROVAYBLUE)(Q9968 PER 1MG) As Ordered ONE (09:08)
[2017-06-03] MEDS ORDERED: LIDOCAINE W/EPINEPHRINE 1% 20ML VIAL As Ordered ONE (09:09)
[2017-06-03] MEDS ORDERED: EPINEPHrine 1MG/ML INJ 30ML MD-VIAL As Ordered ONE (09:09)
[2017-06-03] MEDS ORDERED: fentaNYL 100 MCG/2 ML INJECTION (J3010) As Ordered ONE ×2 (09:54→09:58)
[2017-06-03] MEDS ORDERED: MIDAZOLAM INJ 2 MG/2 ML VIAL (J2250) As Ordered ONE (09:54)
[2017-06-03] MEDS ORDERED: ROCURONIUM BROMIDE 50 MG/5 ML VIAL/SYRINGE As Ordered ONE (09:58)
[2017-06-03] MEDS ORDERED: dexameTHASONE 4 MG/ML 1ML VIAL (J1100) As Ordered ONE (09:58)
[2017-06-03] MEDS ORDERED: LIDOCAINE 2% INJ 100 MG/5 ML SDV (FOR ANES.) As Ordered ONE (09:58)
[2017-06-03] MEDS ORDERED: PROPOFOL 200 MG/20 ML VIAL As Ordered ONE (09:58)
[2017-06-03] MEDS ORDERED: ONDANSETRON 4MG/2ML VIAL (J2405) As Ordered ONE (09:58)
[2017-06-03] MEDS ORDERED: NEOSTIGMINE 10 MG/10 ML VIAL (J2710) As Ordered ONE (10:39)
[2017-06-03] MEDS ORDERED: GLYCOPYRROLATE INJ 0.2 MG/ML 2 ML VIAL As Ordered ONE (10:39)
[2017-06-03] MEDS ORDERED: PERCOCET 5MG/325MG TAB PO PRN (11:30)
[2017-06-03] MEDS ORDERED: ONDANSETRON 4MG/2ML VIAL (J2405) IV PRN (11:30)
[2017-06-03] MEDS ORDERED: fentaNYL 100 MCG/2 ML INJECTION (J3010) IV PRN (11:30)
[2017-06-03] MEDS ORDERED: ACETAMINOPH W/CODEINE #3 TAB UD PO PRN (11:30)
[2017-06-03] MEDS ORDERED: LR 1,000 ML IV SCH ×2 (11:30)
[2017-06-03 12:45] VITALS: BP 134/86
[2017-06-03] MEDS ORDERED: PERCOCET 5MG/325MG TAB As Ordered ONE (12:48)
--- NOTE | 2017-06-03 14:57 | RO ---
DATE OF PROCEDURE: 06/03/2017 PREOPERATIVE DIAGNOSES: Chronic rhinitis and nasal valve collapse. POSTOPERATIVE DIAGNOSES: Chronic rhinitis and nasal valve collapse. OPERATIVE PROCEDURE: Cartilage graft from nasal septum to inferior turbinate and left nasal valve repair. SURGEON: Dr. Zay Cuenca TEST AUTOMATION ARCHITECT: ANESTHESIA: . DESCRIPTION OF PROCEDURE: Under general anesthesia with the patient intubated, the patient prepped and draped in the usual manner, I used pledgets of adrenaline 1:100,000 infiltrated with lidocaine and epinephrine. I first made an incision anteriorly in the septum and elevated the subperichondrial plane. I harvested quadrangular cartilage. The dissection was closed with a 4-0 Vicryl and 4-0 chromic suture. I then made an incision anterior to the inferior turbinate on the left side and elevated the mucosa. I put two pieces of cartilage into the submucosal dissection plane of the inferior turbinate on that left side. I sutured that with 4-0 Vicryl. Then, I made an incision anterior to the inferior aspect of the nasal bone on the left side. I dissected around the inferior border of the nasal bone. I then used a drill to drill a hole through the nasal bone. Using 4-0 Vicryl, I passed it through the hole in the nasal bone and then through the inferior aspect of the lateral crest of the lower lateral cartilage and then back into the nasal bone and tied this to stabilize the nasal valve on the left side. I closed that wound with 4-0 Vicryl. The patient tolerated the procedure well. Less than 25 mL estimated blood loss. The patient was extubated and transferred to the recovery room in excellent condition.
== END 2017-06-03 13:10 | disposition home or self-care (01) ==
LOC: M SDC 07:32
PROVIDERS: ATTEND Otolaryngology
DX: J31.0 Chronic rhinitis (principal); J34.89 Other specified disorders of nose and nasal sinuses; Z87.891 Personal history of nicotine dependence
CPT/HCPCS: 20912; 30620; J1100; J2250; J2405; J2710; J3010; Q9968